=== PATIENT | female | born 1940 | race African-American/Black ===

== ENCOUNTER 2022-02-27 08:44 | Outpatient (CLI) | payer MEDICARE, OTHER, SELFPAY ==
[2022-02-27 11:22] LABS: Creatinine Urine 146.7 mg/dL
[2022-02-27 11:23] LABS: Microalbumin Creatinine Ratio 10 mg/g (0-30); Microalbumin Urine 2 mg/dL
[2022-02-27 11:31] LABS: Albumin* 3.8 g/dL (3.3-5.0)
[2022-02-27 11:32] LABS: Chloride* 106 mmol/L (96-114); Potassium* 4.1 mmol/L (3.6-5.1); Sodium* 142 mmol/L (135-149)
[2022-02-27 11:34] LABS: Cholesterol* 144 mg/dL (90-199); Creatinine* 0.9 mg/dL (0.5-1.5); Estimated Glomerular Filt Rate 64 ml/min
[2022-02-27 11:35] LABS: Alanine Aminotransferase* 17 U/L (4-35); Alkaline Phosphatase* 84 U/L (40-150); Aspartate Amino Transferase* 24 U/L (12-35); Bilirubin Total* 0.4 mg/dL (0.1-1.5); Blood Urea Nitrogen* 20 mg/dL (7-30); Calcium* 9.3 mg/dL (8.4-10.6); Carbon Dioxide* 31 mmol/L (20-32); Glucose* 128 mg/dL (60-115); Total Protein* 6.9 g/dL (6.0-8.3); Triglycerides* 156 mg/dL (40-149)
[2022-02-27 11:36] LABS: HDL Cholesterol* 40 mg/dL (>=50); LDL Cholesterol Calculated 73 mg/dL (<100)
== END 2022-02-27 08:45 | disposition home or self-care (01) ==
LOC: NFLDREF 08:44
PROVIDERS: PCP Family Medicine; Visit Provider Family Medicine
DX: E11.9 Type 2 diabetes mellitus without complications (principal); I10 Essential (primary) hypertension; E78.5 Hyperlipidemia, unspecified
CPT/HCPCS: 80053; 80061; 82043; 82570

== ENCOUNTER 2022-11-12 11:59 | Emergency (ER) | payer MEDICARE, OTHER, SELFPAY ==
[2022-11-12 13:03] VITALS: BP 138/69; PULSE 83; RESP 16; TEMP 36.2; O2SAT 95; BMI 27.7
--- NOTE | 2022-11-12 15:55 | ED_ITS ---
HPI - General Adult General Date Seen: 11/12/22 Chief complaint: Eye Problems Stated complaint: Left eye pain/irritation Time Seen by Provider: 11/12/22 15:14 Source: patient and intelligence intern Mode of arrival: ambulatory Limitations: language barrier History of Present Illness HPI narrative: Patient is an 81-year-old woman who presents for evaluation of her right eye. She speaks Kisii, and we were unable to procure an intelligence intern for this language. She waited several hours in the waiting room as a result. She does have someone with her now who speaks reasonably good Bengali and is helping to interpret. She has apparently been having some irritation in the right eye for several days. She has not had pain, although it is uncomfortable when she looks to the side. She has not had any visual changes, no photophobia. She has occasionally had some tearing but has not had any mattering or purulent drainage. She denies trauma to the eye. She does have a history of diabetes, and has had surgery on the left eye, she is not able to tell me exactly for what. Related Data Previous Rx's Medication Instructions Recorded blood pressure monitor #1 ea 02/15/22 Blood Glucose Meter #1 ea 05/17/22 Diabetic Test Strips #100 ea 05/17/22 lancets #100 ea 05/17/22 glipizide 10 mg tablet, extended 20 mg PO DAILY #180 tabs 09/21/22 release 24 hr metformin 500 mg tablet,extended 1,500 mg PO DAILY #270 tabs 09/21/22 release 24 hr simvastatin 20 mg tablet 20 mg PO .Bedtime #90 tabs 09/21/22 Allergies Allergy/AdvReac Type Severity Reaction Status Date / Time No Known Allergies Allergy Verified 11/12/22 13:23 Review of Systems Status of ROS: Reports: 6 or more systems reviewed and unremarkable except as noted in History and below [facility] Medical History (Updated 11/12/22 @ 15:27 by Deisi Vila MD) Diabetes 1.5, managed as type 2 ?E13.9 - Other specified diabetes mellitus without complications (ICD-10) Hyperlipemia ?E78.5 - Hyperlipidemia, unspecified (ICD-10) Social History Smoking Status: Never smoker Do you use any of these nicotine containing products: None How often do you have a drink containing alcohol: never AUDIT-C Alcohol total score: 0 Non-prescribed substance use: denies use Exam Narrative: Exam Narrative: Vital signs reviewed In general, an alert, nontoxic woman. Looks comfortable. Normocephalic, atraumatic. Eyes: She has mild conjunctival injection in the medial aspect of the right eye. Pupils are equal and reactive. Extraocular movements are full. There is no edema, globes feel normal bilaterally. Lids are normal. ENT: Nares clear. No facial trauma or swelling. Skin: Warm and dry, no rash or lesion. Neurologic: Is alert, conversant, gait stable. Const: Vital Signs, click to edit/add: Vital Signs - 24 hr 11/12/22 13:03 Temperature 97.1 F L Pulse Rate [Right Pulse Oximeter] 83 Respiratory Rate 16 Blood Pressure [Ri ght Upper Arm] 138/69 Pulse Oximetry 95 Oxygen Delivery Me thod Room Air Course Course Hospital Course: Visual acuity was done and was 20/20 in bilateral eyes. A fluorescein exam with Wood's lamp shows no evidence of corneal abrasion. Overall, her exam is fairly unremarkable. She does have mild injection, possibly just some mild conjunctivitis. Will treat with some antibiotic drops, recommended that if she is not getting better in the next couple of days that she be seen in clinic given her age and medical history so that she can have a more thorough exam. Vital Signs Vital signs: Initial Vital Signs Temperature 97.1 F L 11/12/22 13:03 Temperature Source Temporal Artery Scan 11/12/22 13:03 Pulse Rate 83 11/12/22 13:03 Respiratory Rate 16 11/12/22 13:03 Blood Pressure 138/69 11/12/22 13:03 Blood Pressure Mean 92 11/12/22 13:03 Blood Pressure Position Sitting 11/12/22 13:03 Pulse Oximetry 95 11/12/22 13:03 Oxygen Delivery Method Room Air 11/12/22 13:03 Vital Signs Temperature 97.1 F L 11/12/22 13:03 Pulse Rate 83 11/12/22 13:03 Respiratory Rate 16 11/12/22 13:03 Blood Pressure 138/69 11/12/22 13:03 Pulse Oximetry 95 11/12/22 13:03 Oxygen Delivery Method Room Air 11/12/22 13:03 Temperature 97.1 F L 11/12/22 13:03 Pulse Rate 83 11/12/22 13:03 Respiratory Rate 16 11/12/22 13:03 Blood Pressure 138/69 11/12/22 13:03 Pulse Oximetry 95 11/12/22 13:03 Oxygen Delivery Method Room Air 11/12/22 13:03 Discharge Plan Discharge Clinical Impression: Conjunctivitis Patient Disposition: Home, Self-Care Condition: Stable Instructions: Conjunctivitis (ED) Additional Instructions: Antibiotic drops as prescribed. If not improving over the next 1-2 days, follow up at [facility] for more thorough examination. [phone] if you need to schedule an appointment there. For any acute worsening, severe pain, loss of vision etcetera, return to the emergency department. Prescriptions: No Action (DME) Blood Glucose Meter Misc See Rx Instructions .Route Qty: 1 0RF Rx Instructions: As directed (DME) lancets Misc See Rx Instructions .Route Qty: 100 3RF Rx Instructions: As directed (DME) Diabetic Test Strips Misc See Rx Instructions .Route Qty: 100 3RF Rx Instructions: As directed (DME) blood pressure monitor Kit See Rx Instructions .Route Qty: 1 0RF Rx Instructions: As directed glipizide 10 mg tablet extended release 24hr 20 mg PO DAILY Qty: 180 1RF metformin 500 mg tablet extended release 24 hr 1,500 mg PO DAILY Qty: 270 1RF simvastatin 20 mg tablet 20 mg PO .Bedtime Qty: 90 1RF Follow Up/Referrals: Fredo Mary MD [Primary Care Provider] - Stand Alone Forms: [employer] Info Instructions
== END 2022-11-12 15:39 | disposition home or self-care (01) ==
LOC: ED 15:38
PROVIDERS: Emergency Provider Emergency Medicine; PCP Family Medicine
DX: H10.021 Other mucopurulent conjunctivitis, right eye (principal)
CPT/HCPCS: 99282; 99283

== ENCOUNTER 2023-03-18 08:12 | Outpatient (CLI) | payer MEDICARE, OTHER, SELFPAY | END 2023-03-18 08:13 | disposition home or self-care (01) | LOC: NFLDREF 12:56 | PROVIDERS: PCP Family Medicine; Referring Provider Family Medicine; Visit Provider Family Medicine | DX: E11.9 Type 2 diabetes mellitus without complications (principal); H61.20 Impacted cerumen, unspecified ear; E03.9 Hypothyroidism, unspecified; E78.5 Hyperlipidemia, unspecified; E66.9 Obesity, unspecified | CPT/HCPCS: 80053; 80061; 82043; 82570; 84439; 84443 ==

== ENCOUNTER 2024-05-19 09:05 | Outpatient (CLI) | payer MEDICARE, OTHER, SELFPAY ==
--- OUTSIDE RECORDS SUMMARY | 2024-05-22 13:20 | XMS_ITS | Clinical Summary ---
Author Organization [email or web address] Address [place], [place] [address] Care Team Providers Care Batterboard Setter Name Role Phone Fredo Mary MD Primary Care Provider [phone] Allergies No known active allergies Medications Medication Sig Dispensed Refills Start Date End Date Status simvastatin (ZOCOR) 20 mg tablet Take 20 mg by mouth at bedtime. Active metFORMIN (GLUCOPHAGE XR) 500 mg Extended-Release tablet Take 1,500 mg by mouth once daily with a meal. Active glipiZIDE extended-release (GLUCOTROL XL) 10 mg Extended-Release tablet Take 20 mg by mouth once daily before a meal. Active Active Problems Problem Noted Date Diagnosed Date Complete heart block 02/06/2022 Hyperlipidemia LDL goal < 100 06/04/2012 DM (diabetes mellitus) 05/16/2012 Immunizations Name Administration Dates Next Due Amb Influenza, Inact (High-dose) (Flu Clinic Onl y) 05/27/2015 Hepatitis A (Adult) 10/12/2010 Typhoid (injectable) 10/12/2010 Social History Tobacco Use Types Packs/Day Years Used Date Smoking Tobacco: Never Smokeless Tobacco: Never Tobacco Cessation:Counseling Given: Yes Alcohol Use Standard Drinks/Week Comments Not Asked 0 (1 standard drink = 0.6 oz pur e alcohol) Social Connections Answer Date Recorded Frequency of Communication with Friends and Fami ly Not on file 11/20/2022 Sex and Gender Information Value Date Recorded Sex Assigned at Not on file Gender Identity Not on file Sexual Orientation Not on file Obstetrics History Last Filed Vital Signs Vital Sign Reading Time Taken Comments Blood Pressure 145/73 12/25/2023 9:30 AM CDT Pulse 73 12/25/2023 9:30 AM CDT Temperature 36.8 ??C (98.2 ??F) 02/08/2022 7:46 AM CD T Respiratory Rate 16 02/08/2022 7:00 AM CDT Oxygen Saturation 94% 12/25/2023 9:30 AM CDT Inhaled Oxygen Concentration - - Weight 91.2 kg (201 lb) 12/25/2023 9:30 AM CDT Height - - Body Mass Index - - Plan of Treatment Health Maintenance Due Date Last Done Comments Tdap 12/16/1951 Depression screening for age 12+ 1952 BMI (ht and wt on same day) for age 18+ 1958 Tetanus booster 1960 Zoster (shingles) series for age 50+ (1 of 2) 1990 DEXA/DXA scan for age 65+ 2005 Medicare Wellness for age 65+ 2005 Pneumococcal series for age 65+ (1 of 1 - PCV) 2005 RSV vaccine for adults or pr egnancy (1 - 1-dose 75+ series) 12/16/2015 COVID-19 vaccine series ( season) 2024 06/11/2023, 10/22/2020, 10/01/2020 Influenza for age 65+ 04/12/2024 05/27/2015 Advance Directives * Full Code (Latest Code Status on File) Date Activated Date Inactivated Comments 02/06/2022 4:13 PM 02/08/2022 2:24 PM Question Answer Comments Code Status Discussion: Reviewed Preferences * Full Code Date Activated Date Inactivated Comments 02/05/2022 11:53 PM 02/06/2022 4:13 PM Question Answer Comments Code Status Discussion: Unable to Assess Preferences, Provider to review later * Full Code Date Activated Date Inactivated Comments 05/11/2011 3:25 PM 05/12/2011 2:34 AM Care Teams Batterboard Setter Relationship Specialty Start Date End Date Fredo Mary MD [address] [place] [phone] PCP - General Family Practice 12/11/23
== END 2024-05-19 09:06 | disposition home or self-care (01) ==
LOC: NFLDREF 05-22 13:07
PROVIDERS: PCP Family Medicine; Referring Provider Family Medicine; Visit Provider Family Medicine
DX: Z00.00 Encounter for general adult medical examination without abnormal findings (principal); E11.9 Type 2 diabetes mellitus without complications; E03.9 Hypothyroidism, unspecified; E78.5 Hyperlipidemia, unspecified; I10 Essential (primary) hypertension; R21 Rash and other nonspecific skin eruption; E66.9 Obesity, unspecified; R00.1 Bradycardia, unspecified
CPT/HCPCS: 80053; 80061; 82043; 82570; 84439; 84443

== ENCOUNTER 2024-12-24 13:49 | Outpatient (CLI) | payer MEDICARE, OTHER, SELFPAY | END 2024-12-24 13:50 | disposition home or self-care (01) | LOC: NFLDREF 12-31 23:01 | PROVIDERS: PCP Family Medicine; Referring Provider Family Medicine; Visit Provider Family Medicine | DX: R10.12 Left upper quadrant pain (principal) | CPT/HCPCS: 80053; 83690; 86140 ==

== ENCOUNTER 2024-12-29 08:29 | Outpatient (CLI) | payer MEDICARE, OTHER, SELFPAY ==
--- NOTE | 2024-12-29 08:30 | CRLHL7_ITS ---
For Patients: As a result of the 21st Century Cures Act, medical imaging exams and procedure reports are released immediately into your electronic medical record. You may view this report before your referring provider. If you have questions, please contact your health care provider. INDICATION: Left mid abdominal pain. COMPARISON: 12/08/2014 TECHNIQUE: CT of the abdomen and pelvis without intravenous contrast. Multiplanar axial, coronal, and sagittal reformats were reconstructed. Contrast: None. FINDINGS: Lung bases: Respiratory motion and atelectasis. Partially visualized pacemaker leads. Liver: Normal. No mass. Gallbladder and bile ducts: Normal gallbladder. No bile duct dilation. Pancreas: Normal. Spleen: Normal. Adrenal glands: Normal. Kidneys: Normal parenchyma. There is a hyperdense small lesion in the far inferior anterior right kidney that measures about 5 millimeters. Not distinctly seen on the prior contrast-enhanced examination. This is very likely to be a small hyperdense cyst but could be layering calcium in a peripheral calyx. There is another even smaller hyperdensity in the posterior left mid kidney that measures about 3 millimeters on series 2, image 54. No definite renal mass. No right-sided urinary tract calculi. There is a 2 millimeter left upper pole renal calculus. See series 2, image 36. no urinary tract dilation. Urinary bladder: Barely filled. Pelvis: Calcified myometrial vessels typical of the late postmenopausal stage. Vessels: Atherosclerosis. Bowel: No dilated or inflamed bowel. Normal appendix. Colonic diverticulosis without any focal diverticulitis seen redundant sigmoid colon. Moderate right-sided stool burden. Lymph nodes: No adenopathy. Peritoneum: No ascites or free air. Abdominal wall: Diastasis recti. No bowel containing hernia. Small fat containing umbilical hernia. Bones: No fractures. No focal worrisome bone lesions. IMPRESSION: 1. There is a 2 millimeter left upper pole calculus. No ureteral calculi or urinary tract dilatation. 2. There are 2 nonspecific mildly hyperdense areas in the left kidney that may be proteinaceous cysts or could be very small stones layering in peripheral calices. 3. Moderate right-sided stool burden. Diverticulosis without diverticulitis. Please note that all CT scans at this facility use dose modulation, iterative reconstruction, and/or weight-based dosing when appropriate to reduce radiation dose to as low as reasonably achievable. Dictated by Tea Orozco MD @ 12/29/2024 9:08:37 AM (Electronically Signed)
== END 2024-12-29 08:30 | disposition home or self-care (01) ==
LOC: CT 08:32
PROVIDERS: PCP Family Medicine; Visit Provider Family Medicine
DX: R10.9 Unspecified abdominal pain (principal); N20.0 Calculus of kidney; K57.90 Diverticulosis of intestine, part unspecified, without perforation or abscess without bleeding
CPT/HCPCS: 74176

== ENCOUNTER 2025-06-28 15:29 | Outpatient (CLI) | payer MEDICARE, OTHER, SELFPAY | END 2025-06-28 15:30 | disposition home or self-care (01) | PROVIDERS: PCP Family Medicine; Visit Provider Family Medicine | DX: E11.9 Type 2 diabetes mellitus without complications (principal); E03.9 Hypothyroidism, unspecified | CPT/HCPCS: 80053; 80061; 82043; 82570; 84439; 84443 ==